=== PATIENT | male | born 1960 | race Caucasian/White ===

== ENCOUNTER 2020-05-21 06:40 | Day surgery (SDC) | payer BC ==
[~2020-05-21] VITALS: Ht 165.1 cm; Wt 68.8 kg
[~2020-05-21 06:40] MED LIST: CYAN100; Cialis5 MG; LOSHYD; VITAMIN D31000 UNIT
[2020-05-21] MEDS ORDERED: SILD25T (07:47)
== END 2020-05-21 09:00 | disposition home or self-care (01) ==
LOC: ORSCSDS 06:40
PROVIDERS: Internal Medicine Gastroenterology
PROC: 0DBL8ZX Excision of Transverse Colon, Via Natural or Artificial Opening Endoscopic, Diagnostic (ICD-10-PCS; principal; 2020-05-21 08:00)
PROC: 0DBN8ZX Excision of Sigmoid Colon, Via Natural or Artificial Opening Endoscopic, Diagnostic (ICD-10-PCS; principal; 2020-05-21 08:00)
DX: Z12.11 Encounter for screening for malignant neoplasm of colon (principal); Z86.010 Personal history of colon polyps; D12.3 Benign neoplasm of transverse colon; K63.5 Polyp of colon; I10 Essential (primary) hypertension; F17.210 Nicotine dependence, cigarettes, uncomplicated; K64.8 Other hemorrhoids; Z79.899 Other long term (current) drug therapy
CPT/HCPCS: 88305; J0330; J0461; J2250; J2405; J2704; J7120

== ENCOUNTER 2023-01-31 09:04 | Day surgery (SDC) | payer BC ==
[~2023-01-31] VITALS: Ht 165.1 cm; Wt 69.9 kg
[~2023-01-31 09:04] MED LIST changes: +SILD25T
[2023-01-31] MEDS ORDERED: CATAPRES0.1 MG PO (09:38)
--- NOTE | 2023-01-31 12:17 | NUR ---
PLACEMENT IS GOOD PER DR. CANALES, RADIOLOGY.
--- NOTE | 2023-01-31 12:37 | NUR ---
REPORT GIVEN TO Paresh VALENTINE WHO IS ASSUMING CARE OF PT AT THIS TIME.
--- NOTE | 2023-01-31 13:29 | NUR ---
Patient up to Ambulate independently. Gait steady. Cynthia Paws warming gown applied. Discharge instructions reviewed with patient. Patient verbalizes understanding. Copy given to patient to take home.Lungs clear T/O to Auscultation. Patient States Post-Procedure ride home has been arranged. Discharged via wheelchair to private car for ride home.
== END 2023-01-31 13:32 | disposition home or self-care (01) ==
LOC: ORSCMMR 09:04 → ORD 10:30 → ORSCMMR 10:30
PROVIDERS: Surgery
PROC: 0JH60WZ Insertion of Totally Implantable Vascular Access Device into Chest Subcutaneous Tissue and Fascia, Open Approach (ICD-10-PCS; principal; 2023-01-31 10:30)
DX: C85.10 Unspecified B-cell lymphoma, unspecified site (principal); I10 Essential (primary) hypertension; F17.210 Nicotine dependence, cigarettes, uncomplicated; I12.9 Hypertensive chronic kidney disease with stage 1 through stage 4 chronic kidney disease, or unspecified chronic kidney disease; N18.9 Chronic kidney disease, unspecified; E03.9 Hypothyroidism, unspecified; N40.0 Benign prostatic hyperplasia without lower urinary tract symptoms; Z79.899 Other long term (current) drug therapy
CPT/HCPCS: 77001; 93005; 93010; A9270; C1788; J0690; J1100; J1642; J2250; J2370; J2405; J2704; J2795; J3010; J7120

== ENCOUNTER → 2023-04-10 | Outpatient (CLI) | payer BC ==
[~2023-04-10] MED LIST changes: +CATAPRES0.1 MG PO
[2023-04-10 22:46] LABS: Albumin, Blood 3.7 g/dL (3.4-5.0); Anion Gap 4 mmol/L (6-16); Blood Urea Nitrogen 14 mg/dL (8-24); CO2, Blood 29 mmol/L (21-32); Calcium, Blood 9.3 mg/dL (8.5-10.1); Chloride, Blood 107 mmol/L (98-108); Creatinine, Blood 0.74 mg/dL (0.60-1.20); Glomerular Filtration Rate 102 (60-); Glucose, Blood 116 mg/dL (70-99); Phosphorus, Blood 2.5 mg/dL (2.5-4.9); Potassium, Blood 4.3 mmol/L (3.5-5.5); Sodium, Blood 140 mmol/L (136-145)
== END | disposition home or self-care (01) ==
LOC: LAB 12:40 → LAB SHORT 12:40
PROVIDERS: Internal Medicine Nephrology
DX: N18.2 Chronic kidney disease, stage 2 (mild) (principal); D63.1 Anemia in chronic kidney disease
CPT/HCPCS: 80069; 85018

== ENCOUNTER → 2023-12-17 | Outpatient (CLI) | payer BC ==
[2023-12-17 16:10] LABS: Albumin, Blood 3.9 g/dL (3.4-5.0); Albumin/Globulin Ratio 1.6 (0.8-1.8); Bun/Creatinine Ratio 18.5 (12.0-20.0); Creatinine, Blood 0.86 mg/dL (0.60-1.20); Globulin, Blood 2.5 g/dL (2.2-4.0); Phosphorus, Blood 3.5 mg/dL (2.5-4.9); Potassium, Blood 4.5 mmol/L (3.5-5.5); Total Protein, Blood 6.4 g/dL (6.4-8.2)
== END | disposition home or self-care (01) ==
LOC: LAB SHORT 10:55 → LAB 10:55
PROVIDERS: Internal Medicine Hematology & Oncology
DX: C85.10 Unspecified B-cell lymphoma, unspecified site (principal)
CPT/HCPCS: 80053; 83615; 84100

== ENCOUNTER → 2025-10-12 | Outpatient (CLI) | payer BC ==
[2025-10-15 10:46] LABS: CORTISOL,U FREE - RATIO TO CRT 24.25 ug/g CRT; CORTISOL,URINE FREE - PER 24H 29.5 ug/d (<=60.0); CORTISOL,URN FREE - PER VOLUME 21.10 ug/L; CREATININE,URINE - PER 24H 1218 mg/d (800-2100); CREATININE,URINE - PER VOLUME 87 mg/dL; HOURS COLLECTED 24 hr
== END ==
LOC: LAB 04:30 → LAB SHORT 04:30 → LAB FUT 09-05 13:45 → EDSTATUS 09-05 13:45
PROVIDERS: Internal Medicine Nephrology
DX: N18.30 Chronic kidney disease, stage 3 unspecified (principal); D63.1 Anemia in chronic kidney disease; N25.81 Secondary hyperparathyroidism of renal origin; E55.9 Vitamin D deficiency, unspecified; E78.00 Pure hypercholesterolemia, unspecified; R76.9 Abnormal immunological finding in serum, unspecified; R94.5 Abnormal results of liver function studies; G60.9 Hereditary and idiopathic neuropathy, unspecified
CPT/HCPCS: 82530